=== PATIENT | female | born 1960 | race Caucasian/White ===

== ENCOUNTER 2016-07-23 18:45 | Emergency (ER) | payer BC ==
[2016-07-23] MEDS ORDERED: Sodium Chloride 0.9% 10 ML Syringe FLUSH PRN (19:03)
[2016-07-23] MEDS ORDERED: Sodium Chloride 0.9% 1,000 ML IV ONE (19:04)
[2016-07-23] MEDS ORDERED: methylPREDNISolone Sodium Succinate 125 MG/2 ML SDV IVPUSH ONE (19:05)
[2016-07-23] MEDS ORDERED: Take Home: Azithromycin 250 MG, 2 Tab Pack PO ONE (19:06)
[2016-07-23] MEDS ORDERED: Azithromycin 500 MG in Sodium Chloride 0.9% 250 ML IV ONE (19:06)
--- NOTE | 2016-07-23 19:12 | EDM.PDOC ---
ED HPI GENERAL MEDICAL PROBLEM - General Chief Complaint: Headache Stated Complaint: Right side headache; sinus pressure; post nasal drip; fatigue Time Seen by Provider: 07/23/16 18:54 Source of Information: Reports: Patient, RN, RN Notes Reviewed History Limitations: Reports: No Limitations - History of Present Illness INITIAL COMMENTS - FREE TEXT/NARRATIVE: Patient presents to the emergency room at [facility] complaining of a right- sided headache located behind the right orbit, sinus pressure and pain, postnasal drip, and fatigued. The patient states her symptoms have been progressively getting worse over the past several days. The patient has not checked her temperature but she states she feels hot. The patient states she is trying to stay well hydrated with good by mouth fluid intake. No close family members or contacts with similar symptoms. The patient states that she has a chronic cough since December 2015, and when she is working closely with her PCP. The patient denies any shortness of breath. The patient states that she has generalized head pain with her throat, ears, and right-sided head. The patient has not tried any [id number] medications for her symptoms. Onset: Gradual - Related Data Allergies Allergy/AdvReac Type Severity Reaction Status Date / Time cefazolin Allergy Hives Verified 07/23/16 19:00 Penicillins Allergy Hives Verified 07/23/16 18:59 Home Meds: Home Meds Modafinil 200 mg PO TID 07/23/16 [History] ED ROS GENERAL - Review of Systems Review Of Systems: See Below Constitutional: Reports: Weakness, Fatigue. Denies: Fever, Chills, Diaphoresis HEENT: Reports: Ear Pain, Eye Pain, Nose Pain, Rhinitis, Sinus Problem, Throat Pain. Denies: Ear Discharge, Eye Discharge, Throat Swelling, Vision Change Respiratory: Reports: Cough (chronic). Denies: Shortness of Breath, Sputum Cardiovascular: Denies: Chest Pain, Palpitations Skin: Reports: No Symptoms Neurological: Reports: Dizziness, Headache, Numbness, Paresthesia, Tingling - Physical Exam Exam: See Below Exam Limited By: No Limitations General Appearance: Alert, No Apparent Distress Eye Exam: Bilateral Eye: EOMI, Normal Inspection, PERRL Ears: Normal External Exam, Normal Canal, Normal TMs Nose: Normal Inspection, Normal Mucosa, Nasal Tenderness Throat/Mouth: Normal Inspection, Normal Oropharynx, No Airway Compromise, Other (mucous membranes very dry and pale) Head Exam: Atraumatic, Normocephalic, Sinus Tenderness (Right) Neck: Supple Respiratory/Chest: No Respiratory Distress, Lungs Clear, Normal Breath Sounds Cardiovascular: Regular Rate, Rhythm Neuro Exam (Abbreviated): Alert, Oriented Skin Exam: Warm, Dry, Intact, Normal Color, No Rash Course - Orders/Labs/Meds Orders: Active Orders 24 hr Category Date Time Status Azithromycin [Zithromax] 500 mg Med 07/23/16 19:06 Active Sodium Chloride 0.9% [Normal Saline] 250 ml IV ONETIME Sodium Chloride 0.9% [Normal Saline] 1,000 ml Med 07/23/16 19:04 Active IV ONETIME Sodium Chloride 0.9% [Saline Flush] Med 07/23/16 19:03 Active 10 ml FLUSH ASDIRECTED PRN Peripheral IV Insertion Adult [OM.PC] Routine Oth 07/23/16 19:03 Ordered Medication Orders Sodium Chloride (Normal Saline) 1,000 mls @ 999 mls/hr IV ONETIME ONE Stop: 07/23/16 20:04 Last Admin: 07/23/16 19:18 Dose: 999 mls/hr Azithromycin 500 mg/ Sodium (Chloride) 250 mls @ 250 mls/hr IV ONETIME ONE Stop: 07/23/16 20:05 Last Admin: 07/23/16 19:32 Dose: 250 mls/hr Sodium Chloride (Saline Flush) 10 ml FLUSH ASDIRECTED PRN PRN Reason: Keep Vein Open Last Admin: 07/23/16 19:18 Dose: 10 ml Meds: Medications Generic Name Dose Route Start Last Admin Trade Name Freq PRN Reason Stop Dose Admin Sodium Chloride 1,000 mls @ 999 mls/hr 07/23/16 19:04 07/23/16 19:18 Normal Saline IV 07/23/16 20:04 999 mls/hr ONETIME ONE Administration Azithromycin 500 mg/ Sodium 250 mls @ 250 mls/hr 07/23/16 19:06 07/23/16 19: 32 Chloride IV 07/23/16 20:05 250 mls/hr ONETIME ONE Administration Sodium Chloride 10 ml 07/23/16 19:03 07/23/16 19:18 Saline Flush FLUSH 10 ml ASDIRECTED PRN Administration Keep Vein Open Discontinued Medications Generic Name Dose Route Start Last Admin Trade Name Piter PRN Reason Stop Dose Admin Azithromycin 2 packet 07/23/16 19:06 07/23/16 19:31 Take Home: Azithromycin 250 Mg, 2 Tab Pack PO 07/23/16 19:07 2 packet ONETIME ONE Administration Methylprednisolone Sodium Succinate 125 mg 07/23/16 19:05 07/23/16 19:18 Solu-Medrol IVPUSH 07/23/16 19:06 125 mg ONETIME ONE Administration Departure - Departure Time of Disposition: 19:41 Disposition: Home, Self-Care 01 Condition: good Clinical Impression: Dehydration Acute pansinusitis Qualifiers: Recurrence: recurrent Qualified Code(s): J01.41 - Acute recurrent pansinusitis Fever Qualifiers: Fever type: unspecified Qualified Code(s): R50.9 - Fever, unspecified - Discharge Information Instructions: Sinusitis, Adult, Sinus Headache, Rehydration, Adult, Fever, Adult Forms: ED Department Discharge Additional Instructions: 1. Stay well hydrated and rest 2. May alternate Tylenol/Advil as needed as symptoms persist 3. Take antibiotic for the full coarse, even if you are feeling better 4. See your Primary next week for a follow up to make sure you are feeling better - Problem List Review Problem List Initiated/Reviewed/Updated: Yes - My Orders Last 24 Hours: My Active Orders 07/23/16 19:03 Sodium Chloride 0.9% [Saline Flush] 10 ml FLUSH ASDIRECTED PRN Peripheral IV Insertion Adult [OM.PC] Routine 07/23/16 19:04 Sodium Chloride 0.9% [Normal Saline] 1,000 ml IV ONETIME 07/23/16 19:06 Azithromycin [Zithromax] 500 mg Sodium Chloride 0.9% [Normal Saline] 250 ml IV ONETIME - Assessment/Plan Last 24 Hours: My Active Orders 07/23/16 19:03 Sodium Chloride 0.9% [Saline Flush] 10 ml FLUSH ASDIRECTED PRN Peripheral IV Insertion Adult [OM.PC] Routine 07/23/16 19:04 Sodium Chloride 0.9% [Normal Saline] 1,000 ml IV ONETIME 07/23/16 19:06 Azithromycin [Zithromax] 500 mg Sodium Chloride 0.9% [Normal Saline] 250 ml IV ONETIME
[2016-07-23] MEDS ORDERED: Acetaminophen 500 MG Tab PO ONE (20:20)
[2016-07-23 20:49] VITALS: BP 141/95
== END 2016-07-23 20:35 | disposition home or self-care (01) ==
LOC: VM.ED 18:45
DX: J01.41 Acute recurrent pansinusitis (principal); E86.0 Dehydration; R50.9 Fever, unspecified; Z88.0 Allergy status to penicillin; Z88.8 Allergy status to other drugs, medicaments and biological substances
CPT/HCPCS: 96365; 96375; 99283; A9270; J0456; J2930; J7030; J7050

== ENCOUNTER 2016-07-26 17:14 | Emergency (ER) | payer BC ==
--- NOTE | 2016-07-26 17:41 | EDM.PDOC ---
ED HPI GENERAL MEDICAL PROBLEM - General Chief Complaint: Respiratory Problem Stated Complaint: cough Time Seen by Provider: 07/26/16 17:20 Source of Information: Reports: Patient, RN, RN Notes Reviewed History Limitations: Reports: No Limitations - History of Present Illness INITIAL COMMENTS - FREE TEXT/NARRATIVE: Patient presents to the ED at [facility] with ongoing complaints of upper respiratory symptoms. Patient was seen in this ER a couple days ago and treated for acute sinus infection. She was give IVF, solumedrol, and a ZPak. Patient was seen by her primary yesterday and was put on a tapering dose of Prednisone. Patient states her symptoms have progressively gotten worse. She has developed a dry cough, lethargy and fatigue. Onset: Gradual Back Pain Score (Numeric/FACES): 4 - Related Data Allergies Allergy/AdvReac Type Severity Reaction Status Date / Time aspirin Allergy Bleeding Verified 07/26/16 17:35 cefazolin Allergy Hives Verified 07/26/16 17:35 levofloxacin [From Levaquin] Allergy Other Verified 07/26/16 17:35 Penicillins Allergy Hives Verified 07/26/16 17:35 Home Meds: Home Meds Atenolol [Tenormin] 25 mg PO DAILY 07/23/16 [History] Cholecalciferol (Vitamin D3) [Vitamin D] 5,000 unit PO DAILY 07/23/16 [History] Cyanocobalamin (Vitamin B-12) [Vitamin B-12] 1,000 mcg PO ASDIRECTED 07/23/16 [ History] Methylphenidate HCl [Ritalin] 20 mg PO ASDIRECTED PRN 07/23/16 [History] Modafinil 200 mg PO TID 07/23/16 [History] Montelukast [Singulair] 10 mg PO ONETIME 07/23/16 [History] atorvaSTATin [Lipitor] 40 mg PO ONETIME 07/23/16 [History] clonazePAM [Clonazepam] 1.5 mg PO BEDTIME 07/23/16 [History] Azithromycin [Zithromax] 250 mg DAILY 07/26/16 [History] Benzonatate [Tessalon Perle] 100 mg ASDIRECTED 07/26/16 [History] Clindamycin HCl 300 mg PO QID #36 capsule 07/26/16 [Rx] Prednisone [IJD: predniSONE] 20 mg BID 07/26/16 [History] Past Medical History Gastrointestinal History: Reports: Other (See Below) Other Gastrointestinal History: abdominal pain since December 2015 [employer] History: Reports: Psychiatric History: Reports: Anxiety Immunologic History: Reports: Immunosuppression Social & Family History - Tobacco Use Smoking Status *Q: Never Smoker ED ROS GENERAL - Review of Systems Review Of Systems: See Below Constitutional: Reports: Chills, Fatigue, Decreased Appetite. Denies: Fever, Weakness HEENT: Reports: Rhinitis, Sinus Problem, Throat Pain. Denies: Ear Discharge, Ear Pain, Eye Discharge Respiratory: Reports: Shortness of Breath, Cough. Denies: Sputum Cardiovascular: Denies: Chest Pain, Palpitations GI/Abdominal: Denies: Abdominal Pain, Nausea, Vomiting Skin: Reports: No Symptoms Neurological: Reports: Dizziness, Headache. Denies: Numbness, Paresthesia, Tingling ED EXAM, GENERAL - Physical Exam Exam: See Below Exam Limited By: No Limitations General Appearance: Alert, No Apparent Distress Eye Exam: Bilateral Eye: Normal Inspection, PERRL Ears: Normal External Exam, Normal Canal, Normal TMs Ear Exam: Bilateral Ear: TM normal Nose: Nasal Drainage, Clear Rhinorrhea Throat/Mouth: Normal Inspection, Normal Oropharynx, No Airway Compromise Neck: Supple Respiratory/Chest: No Respiratory Distress, Rhonchi (lower bibasilar) Cardiovascular: Regular Rate, Rhythm GI/Abdominal: Normal Bowel Sounds, Soft, Non-Tender Neurological: Alert, Oriented Skin Exam: Warm, Dry, Intact, Normal Color, No Rash Course - Vital Signs Last Recorded V/S: Last Vital Signs Temp 37.0 C 07/26/16 17:15 Pulse 82 07/26/16 17:15 Resp 20 07/26/16 17:15 BP 123/79 07/26/16 17:15 Pulse Ox 94 L 07/26/16 17:15 - Orders/Labs/Meds Orders: Active Orders 24 hr Category Date Time Status Chest 2V [CR] Stat Exams 07/26/16 17:57 Taken Labs: Laboratory Tests 07/26/16 07/26/16 Range/Units 18:04 18:04 WBC 5.0 (4.0-10.0) x10^3/uL RBC 4.09 (4.00-5.50) x10^6/uL Hgb 13.5 (12.0-16.0) g/dL Hct 40.4 (33.0-47.0) % MCV 98.8 H (78.0-93.0) fL MCH 33.0 H (26.0-32.0) pg MCHC 33.4 (32.0-36.0) g/dL RDW Coeff of North 12.8 (10.0-15.0) % Plt Count 221 (130-400) x10^3/uL Neut % (Auto) 68.8 (50.0-80.0) % Lymph % (Auto) 20.8 L (25.0-50.0) % [place] % (Auto) 8.6 (2.0-11.0) % Eos % (Auto) 1.6 (0.0-4.0) % Baso % (Auto) 0.2 (0.2-1.2) % Sodium 143 (136-145) mmol/L Potassium 4.0 (3.5-5.1) mmol/L Chloride 105 (98-107) mmol/L Carbon Dioxide 31 (21-32) mmol/L BUN 14 (7-18) mg/dL Creatinine 0.6 (0.55-1.02) mg/dL Est Cr Clr Drug Dosing 88.25 mL/min Estimated GFR (MDRD) > 60 Glucose 107 H (74-106) mg/dL Calcium 10.0 (8.5-10.1) mg/dL - Radiology Interpretation Free Text/Narrative:: CXR: No acute process; see scanned document in EMR Departure - Departure Time of Disposition: 18:48 Disposition: Home, Self-Care 01 Condition: good Clinical Impression: Acute bronchitis Qualifiers: Bronchitis organism: unspecified organism Qualified Code(s): J20.9 - Acute bronchitis, unspecified - Discharge Information Prescriptions: Clindamycin HCl 300 mg PO QID #36 capsule Instructions: Acute Bronchitis, [id number] Referrals: PCP,Unknown [Primary Care Provider] - Forms: ED Department Discharge Additional Instructions: 1. Stay well hydrated and rest 2. Take Clindamycin four times a day for 10 days 3. Change out and buy a new toothbrush 4. Avoid any second hand smoke or other environmental inhalation irritants 5. Return to work on 08/01/2016 6. Follow up with your Primary as symptoms warrant - Problem List Review Problem List Initiated/Reviewed/Updated: Yes - My Orders Last 24 Hours: My Active Orders 07/26/16 17:57 Chest 2V [CR] Stat - Assessment/Plan Last 24 Hours: My Active Orders 07/26/16 17:57 Chest 2V [CR] Stat
[2016-07-26 18:11] VITALS: BP 123/79
[2016-07-26 18:26] LABS: CHLORIDE,CL 105 mmol/L (98-107); SODIUM,NA 143 mmol/L (136-145)
[2016-07-26] MEDS ORDERED: Take Home: Clindamycin HCl 150 MG Cap, 6 Cap Pack PO ONE ×2 (18:51→18:57)
== END 2016-07-26 19:05 | disposition home or self-care (01) ==
LOC: VM.ED 17:14
DX: J20.9 Acute bronchitis, unspecified (principal); F41.9 Anxiety disorder, unspecified; Z88.6 Allergy status to analgesic agent; Z88.5 Allergy status to narcotic agent; Z88.0 Allergy status to penicillin; Z79.899 Other long term (current) drug therapy
CPT/HCPCS: 36415; 71020; 80048; 85025; 99285; A9270

== ENCOUNTER 2024-11-06 12:10 | Observation (INO) | payer MEDICARE, OTHER ==
[2024-11-06] MEDS ORDERED: Sodium Chloride 0.9% 10 ML Syringe FLUSH PRN (12:20)
[2024-11-06] MEDS ORDERED: Albuterol 0.083% 2.5 MG/3 ML Neb Soln NEB PRN (12:20)
[2024-11-06] MEDS: MODAFINIL 200 MG PO SCH (15:24)
[2024-11-06] MEDS: METHYLPHENIDATE 20 MG PO SCH (15:25)
[2024-11-06] MEDS ORDERED: METHYLPHENIDATE 20 MG PO PRN (15:48)
[2024-11-06] MEDS ORDERED: Nitroglycerin 0.4 MG Tab.SL SL PRN (17:28)
[2024-11-06] MEDS ORDERED: METHYLPHENIDATE HCL 10 MG PO SCH (21:00)
[2024-11-06] MEDS: Acetaminophen 650 MG Tab.ER PO PRN (21:34)
[2024-11-06] MEDS: Fluticasone Propionate Nasal Spray 9.9 ML BOTTLE NASBOTH SCH (21:34)
[2024-11-07] MEDS: METHYLPHENIDATE 20 MG PO SCH (06:22)
[2024-11-07 06:40] LABS: BASOPHILS ABSOLUTE AUTO 0.0 x10^3/uL (0.0-0.2); BASOPHILS PERCENT AUTO 0.6 % (0.2-1.2); EOSINOPHILS ABSOLUTE AUTO 0.1 x10^3/uL (0.0-0.5); EOSINOPHILS PERCENT AUTO 3.1 % (0.0-4.0); IMMATURE GRAN ABSOLUTE AUTO 0.00 x10^3/uL (0.00-0.07); IMMATURE GRAN PERCENT AUTO 0.00 % (0.00-0.43); LYMPHOCYTES ABSOLUTE AUTO 1.3 x10^3/uL (1.0-4.8); LYMPHOCYTES PERCENT AUTO 40.1 % (25.0-50.0); MONOCYTES ABSOLUTE AUTO 0.4 x10^3/uL (0.0-0.8); MONOCYTES PERCENT AUTO 11.0 % (2.0-11.0); NEUTROPHILS ABSOLUTE AUTO 1.4 x10^3/uL (1.8-7.7); NEUTROPHILS PERCENT AUTO 45.2 % (50.0-80.0); PLATELET COUNT,PLT 175 x10^3/uL (130-400); RED BLOOD CELL COUNT 4.00 x10^6/uL (4.00-5.50); WHITE BLOOD CELL COUNT,WBC 3.2 x10^3/uL (4.0-10.0)
[2024-11-07 07:04] LABS: A/G RATIO 0.89; ALANINE AMINOTRANSFERASE,ALT 28.0 U/L (14-59); ASPARTATE AMNIOTRANSFERASE,AST 28.0 U/L (15-37); BILIRUBIN TOTAL 0.4 mg/dL (0.2-1.0); BLOOD UREA NITROGEN,BUN 12.0 mg/dL (7-18); CARBON DIOXIDE,CO2 32.0 mmol/L (21-32); CHLORIDE,CL 106.0 mmol/L (98-107); CREATININE 0.7 mg/dL (0.55-1.02); EST CRCL DRUG DOSING (CG) 62.53 mL/min; ESTIMATED GFR 95.0 mL/min (>=60); GLUCOSE RANDOM 99.0 mg/dL (70-99); POTASSIUM,K 4.0 mmol/L (3.5-5.1); PROTEIN TOTAL,TP 6.6 g/dL (6.4-8.2); SODIUM,NA 143.0 mmol/L (136-145)
[2024-11-07] MEDS ORDERED: BUPROPION HCL 300 MG PO SCH (09:00)
[2024-11-07] MEDS: buPROPion 150 MG Tab.ER PO SCH (09:11)
[2024-11-07 10:52] VITALS: BP 111/65; PULSE 65
== END 2024-11-07 11:05 | disposition home or self-care (01) ==
LOC: VM.MS 12:10
PROVIDERS: ADMIT Internal Medicine; ATTEND Internal Medicine
DX: R07.89 Other chest pain (principal); R94.31 Abnormal electrocardiogram [ECG] [EKG]; E66.811 Obesity, class 1; M11.20 Other chondrocalcinosis, unspecified site; D83.9 Common variable immunodeficiency, unspecified; F32.A Depression, unspecified; R42 Dizziness and giddiness; R06.02 Shortness of breath; E78.2 Mixed hyperlipidemia; J45.909 Unspecified asthma, uncomplicated; G47.33 Obstructive sleep apnea (adult) (pediatric); G62.9 Polyneuropathy, unspecified; M19.90 Unspecified osteoarthritis, unspecified site; I10 Essential (primary) hypertension; Z88.1 Allergy status to other antibiotic agents; Z88.8 Allergy status to other drugs, medicaments and biological substances; Z88.0 Allergy status to penicillin; Z68.32 Body mass index [BMI] 32.0-32.9, adult; Z98.84 Bariatric surgery status; Z79.899 Other long term (current) drug therapy
CPT/HCPCS: 36415; 80053; 84484; 85025; A9270; G0378